=== PATIENT | female | born 1970 | race Caucasian/White ===

== ENCOUNTER 2022-03-18 10:55 | Emergency (ER) | payer MEDICARE ==
[2022-03-18 11:00] VITALS: BP 135/88; PULSE 86; RESP 20; TEMP 97.9
[2022-03-18] MEDS ORDERED: DIPH,PERTUS(ACELL)TETVAC-LF 0.5 ML VIAL IM ONE (11:12)
[2022-03-18] MEDS ORDERED: BACITRACIN OINT 1 EACH PACKET TOPICAL ONE (11:12)
--- NOTE | 2022-03-18 11:13 | ED ---
Animal Bite HPI - General Chief Complaint: Animal Bite Stated Complaint: cat bit to lt hand Time Seen by Provider: 03/18/22 11:01 Source: patient, RN notes reviewed Mode of arrival: ambulatory Limitations: no limitations - History of Present Illness Initial Comments: 51-year-old female presents emergency from chief complaint left hand Bite. Patient states her cat got out of her house states that she went to get up and bit her left hand. Patient states the cat is up-to-date on vaccinations. Patient is unsure when her last tetanus was. She has known drug ALLERGIES sulfa. Patient states is moderate swelling to her left hand. Patient offers no other complaints. - Related Data Previous Rx's Medication Instructions Recorded Amoxic-Pot Clav 875-125Mg 1 tab PO Q12HR #20 tab 03/18/22 [Augmentin 875-125] Ibuprofen [Motrin] 600 mg PO Q8HR PRN #20 tab 03/18/22 Allergies Allergy/AdvReac Type Severity Reaction Status Date / Time Sulfa (Sulfonamide Allergy Rash/Hives Verified 03/18/22 10:59 Antibiotics) Review of Systems ROS Statement: Those systems with pertinent positive or pertinent negative responses have been documented in the HPI. ROS Other: All systems not noted in ROS Statement are negative. Past Medical History Past Medical History: No Reported History History of Any Multi-Drug Resistant Organisms: None Reported Additional Past Surgical History / Comment(s): Liver transplant Past Psychological History: No Psychological Hx Reported Smoking Status: Current every day smoker Past Alcohol Use History: None Reported Past Drug Use History: None Reported General Exam Limitations: no limitations General appearance: alert, in no apparent distress Head exam: Present: atraumatic, normocephalic, normal inspection Eye exam: Present: normal appearance, PERRL, EOMI. Absent: scleral icterus, conjunctival injection, periorbital swelling Respiratory exam: Present: normal lung sounds bilaterally. Absent: respiratory distress, wheezes, rales, rhonchi, stridor Cardiovascular Exam: Present: regular rate, normal rhythm, normal heart sounds. Absent: systolic murmur, diastolic murmur, rubs, gallop, clicks Extremities exam: Present: other (Left hand swelling, puncture wound noted, full range of motion neurovascular intact) Course Vital Signs 03/18/22 10:57 Temperature 97.9 F Pulse Rate 86 Respiratory 20 Rate Blood Pressure 135/88 O2 Sat by Pulse 100 Oximetry Medical Decision Making - Medical Decision Making Patient's tetanus was updated, patient's wound was cleaned, bacitracin applied patient was started on Augmentin was given strict return parameters Was up-to-date vaccinations. Disposition Clinical Impression: Cat bite Disposition: HOME SELF-CARE Condition: Stable Instructions (If sedation given, give patient instructions): Animal Bite (ED) Additional Instructions: Please return to the Emergency Department if symptoms worsen or any other concerns. Prescriptions: Amoxic-Pot Clav 875-125Mg [Augmentin 875-125] 1 tab PO Q12HR #20 tab Ibuprofen [Motrin] 600 mg PO Q8HR PRN #20 tab PRN Reason: Pain Is patient prescribed a controlled substance at d/c from ED?: No Referrals: Nonstaff,Physician [Primary Care Provider] - 1-2 days Time of Disposition: 11:13
== END 2022-03-18 11:35 | disposition home or self-care (01) ==
LOC: EC 10:55
DX: R22.32 Localized swelling, mass and lump, left upper limb (principal); Z23 Encounter for immunization; F17.200 Nicotine dependence, unspecified, uncomplicated; Z88.2 Allergy status to sulfonamides; W55.01XA Bitten by cat, initial encounter
CPT/HCPCS: 90471; 90715; 99283